=== PATIENT | female | born 2000 | race American Indian/Alaskan Native ===

== ENCOUNTER 2018-05-06 11:33 | Emergency (ER) | payer OTHER ==
[2018-05-06 11:43] VITALS: BP 101/70
[2018-05-06] MEDS ORDERED: TORADOL IM ONE (14:00)
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
--- NOTE | 2018-05-06 15:01 | XRay Report ---
RIGHT HAND: Trauma, thumb pain. The bony architecture is intact. Bony alignment is normal. No soft tissue abnormalities are seen. The joint spaces appear preserved. IMPRESSION: Normal right hand.
== END 2018-05-06 15:22 | disposition home or self-care (01) ==
LOC: ED 11:33
DX: S63.641A Sprain of metacarpophalangeal joint of right thumb, initial encounter (principal); W18.30XA Fall on same level, unspecified, initial encounter; Y93.89 Activity, other specified; Y92.89 Other specified places as the place of occurrence of the external cause; Y99.8 Other external cause status
CPT/HCPCS: 29125; 73130; 96372; 99283; J1885